=== PATIENT | male | born 1970 | race Two or more races ===

== ENCOUNTER 2017-09-15 18:51 | Emergency (ER) | payer BC ==
[2017-09-15] MEDS: LIDOCAINE/EPI/TETRACAINE TOPICAL GEL 3 ML. TP (19:12)
[2017-09-15] MEDS ORDERED: DIPHTH,PERTUSS(ACELL),TET TOX 0.5 ML DISP.SYRIN. VAX IM (19:40)
[2017-09-15] MEDS: TETANUS AND DIPHTHERIA TOX/PF 0.5 ML DISP.SYRIN. VAX IM (19:44)
== END 2017-09-15 20:05 | disposition home or self-care (01) ==
LOC: ER 18:51
DX: S01.01XA Laceration without foreign body of scalp, initial encounter (principal); F32.9 Major depressive disorder, single episode, unspecified; W22.8XXA Striking against or struck by other objects, initial encounter; Y93.89 Activity, other specified; Y92.89 Other specified places as the place of occurrence of the external cause; Y99.8 Other external cause status
CPT/HCPCS: 12001; 90471; 90714; 99283

== ENCOUNTER 2017-09-21 12:41 | Emergency (ER) | payer BC | END 2017-09-21 13:30 | disposition home or self-care (01) | LOC: ER 12:41 | DX: S01.01XD Laceration without foreign body of scalp, subsequent encounter (principal); F32.9 Major depressive disorder, single episode, unspecified; X58.XXXD Exposure to other specified factors, subsequent encounter | CPT/HCPCS: 99281 ==